=== PATIENT | female | born 1990 | race American Indian/Alaskan Native ===

== ENCOUNTER 2018-10-11 14:36 | Emergency (ER) | payer OTHER ==
[2018-10-11 16:07] LABS: HCG Qualitative,Urine Positive (Negative)
[2018-10-11 16:09] LABS: Bilirubin,Urine NEG (Negative); Blood,Urine SM (Negative); Color,Urine Yellow (Yellow); Mucus,Urine FEW /HPF; Protein,Urine <15 mg/dL mg/dL (Negative); Urobilinogen,Urine < 2.0 mg/dL (<2.0); WBC,Urine < 1.0 /HPF (0.0-6.0)
--- NOTE | 2018-10-11 18:56 | Ultrasound Report ---
PROCEDURE: US OB TRANSVAGINAL HISTORY: RUQ and right pelvic pain FINDINGS: Real-time ultrasound of the pelvis was performed by transabdominal and endovaginal techniqu e. These images demonstrate a single live intrauterine gestation at approximately 9 weeks and 5 days wit h cardiac activity of 157 bpm. The right ovary measures 2.6 x 2.2 x 2.5 cm and contains a cyst measuring 1.2 x 1.0 cm. The left ovar y measures 2.5 x 1.2 x 1.9 cm and appears unremarkable. IMPRESSION: Single live intrauterine gestation at approximately 9 weeks and 5 days. Estimated date of delivery is approximately May 11, 2019 This document is electronically signed by Brian Temple MD., October 11 2018 06:54:45 PM ET
--- NOTE | 2018-10-11 18:57 | Ultrasound Report ---
PROCEDURE: US OB <= 14 WEEKS FETUS HISTORY: RUQ and right pelvic pain FINDINGS: Real-time ultrasound of the pelvis was performed by transabdominal and endovaginal techniqu e. These images demonstrate a single live intrauterine gestation at approximately 9 weeks and 5 days wit h cardiac activity of 157 bpm. The right ovary measures 2.6 x 2.2 x 2.5 cm and contains a cyst measuring 1.2 x 1.0 cm. The left ovar y measures 2.5 x 1.2 x 1.9 cm and appears unremarkable. IMPRESSION: Single live intrauterine gestation at approximately 9 weeks and 5 days. Estimated date of delivery is approximately May 11, 2019 This document is electronically signed by Brian Temple MD., October 11 2018 06:55:02 PM ET
--- NOTE | 2018-10-11 19:03 | Ultrasound Report ---
US ABDOMEN LIMITED CLINICAL INDICATION: Female, 28 years of age. right upper quadrant pain COMPARISON: None available. TECHNIQUE: Several real-time grayscale and color Doppler images were obtained. Permanent images were secured for documentation. FINDINGS: Gallbladder surgically absent. No biliary dilatation. The common bile duct measures 1 mm. H omogeneous echodensity of the visualized portions of the liver and pancreas. Visualized aorta is norm al in caliber. Right kidney measures 11.4 cm in length. No hydronephrosis. Portal vein is patent. IMPRESSION: 1. Prior cholecystectomy. No biliary dilatation. 2. Remainder of the study is within normal limits. This document is electronically signed by Asmita Gutierrez DO., October 11 2018 07:01:43 PM ET
[2018-10-11 19:08] LABS: Basophils % (Auto) 0.6 % (0.0-1.8); Eosinophils # (Auto) 0.1 K/mm3 (0.0-0.4); Eosinophils % (Auto) 1.9 % (0.0-4.3); Hematocrit 37.9 % (30.3-42.9); Hemoglobin 12.5 gm/dl (10.1-14.3); Lymphocytes # (Auto) 1.4 K/mm3 (1.2-5.4); Lymphocytes % (Auto) 38.8 % (13.4-35.0); Mean Corpuscular HGB Conc 33 % (30-34); Mean Corpuscular Volume 83 fl (79-97); Monocytes # (Auto) 0.2 K/mm3 (0.0-0.8); Platelet Count 189 K/mm3 (140-440); Red Blood Count 4.57 M/mm3 (3.65-5.03); Red Cell Distribution Width 14.1 % (13.2-15.2)
--- NOTE | 2018-10-11 19:08 | Emergency Department Report ---
HPI - General Chief Complaint: Abdominal Pain Time Seen by Provider: 10/11/18 17:43 - HPI HPI: Room 36 The patient is a 28-year-old female presenting with chief complaint of abdominal pain. The patient states she is approximately 12 weeks experience left lower quadrant abdominal pain for approximately one week. Patient states yesterday she passed one very small blood clot vaginally. Patient states last night she believes she reached backward and pulled something in her right upper quadrant as she developed pain there. Patient describes her lower abdominal pain is intermittent. Has been no history of fever or dysuria. The patient has not noticed a relationship of her right upper quadrant to meals Location: [See above] Duration: One week Quality: Pain Severity: Moderate Modifying factors: [see above] Context: [see above] Mode of transportation: [not driving] ED Past Medical Hx - Past Medical History Previous Medical History?: No - Surgical History Hx Cholecystectomy: Yes Additional Surgical History: c/s - Family History Family history: no significant - Social History Smoking Status: Never Smoker Substance Use Type: None (denies illicit drug use) - Medications Home Medications: Home Medications Medication Instructions Recorded Confirmed Last Taken Type Famotidine [Pepcid] 20 mg PO BID #30 tablet 10/11/18 Unknown Rx ED Review of Systems ROS: Stated complaint: ABD PAIN Other details as noted in HPI Constitutional: no symptoms reported Eyes: denies: eye pain ENT: denies: throat pain Respiratory: no symptoms reported Cardiovascular: denies: chest pain Endocrine: no symptoms reported Gastrointestinal: abdominal pain, nausea Genitourinary: abnormal menses. denies: hematuria Musculoskeletal: denies: back pain Neurological: denies: headache Physical Exam - Physical Exam Vital Signs: Vital Signs 10/11/18 14:40 Temperature 98.2 F Pulse Rate 83 Respiratory 16 Rate Blood Pressure 104/64 O2 Sat by Pulse 100 Oximetry Physical Exam: GENERAL: The patient is well-developed well-nourished female lying on stretcher not appearing to be in acute distress. [] HEENT: Normocephalic. Atraumatic. Extraocular motions are intact. Patient has moist mucous membranes. NECK: Supple. Trachea midline CHEST/LUNGS: Clear to auscultation. There is no respiratory distress noted. HEART/CARDIOVASCULAR: Regular. There is no tachycardia. There is no gallop rub or murmur. ABDOMEN: Abdomen is soft, with tenderness to palpation in the right upper quadrant and left lower quadrant and there is no rebound or guarding. Patient has normal bowel sounds. There is no abdominal distention. SKIN: There is no rash. There is no edema. There is no diaphoresis. NEURO: The patient is awake, alert, and oriented. The patient is cooperative. The patient has normal speech MUSCULOSKELETAL: There is no evidence of acute injury. ED Course Vital Signs 10/11/18 14:40 Temperature 98.2 F Pulse Rate 83 Respiratory 16 Rate Blood Pressure 104/64 O2 Sat by Pulse 100 Oximetry ED Medical Decision Making - Lab Data Result diagrams: 10/11/18 18:42 10/11/18 18:42 Laboratory Tests 10/11/18 10/11/18 10/11/18 15:00 18:42 18:42 WBC 3.6 L RBC 4.57 Hgb 12.5 Hct 37.9 MCV 83 MCH 27 L MCHC 33 RDW 14.1 Plt Count 189 Lymph % (Auto) 38.8 H [place] % (Auto) 6.0 Eos % (Auto) 1.9 Baso % (Auto) 0.6 Lymph # 1.4 [place] # 0.2 Eos # 0.1 Baso # 0.0 Seg Neutrophils % 52.7 Seg Neutrophils # 1.9 Sodium 136 L Potassium 4.1 Chloride 101.1 Carbon Dioxide 24 Anion Gap 15 BUN 6 L Creatinine 0.5 L Estimated GFR > 60 BUN/Creatinine Ratio 12 Glucose 82 Calcium 8.9 Total Bilirubin 0.30 AST 19 ALT 10 Alkaline Phosphatase 46 Total Protein 6.5 Albumin 3.7 L Albumin/Globulin Ratio 1.3 Lipase 44 Urine Color Yellow Urine Turbidity Slightly-cloudy Urine pH 6.0 Ur Specific [place] 1.015 Urine Protein <15 mg/dl Urine Glucose (UA) Neg Urine Ketones Neg Urine Blood Sm Urine Nitrite Neg Ur Reducing Substances Not Reportable Urine Bilirubin Neg Urine Ictotest Not Reportable Urine Urobilinogen < 2.0 Ur Leukocyte Esterase Neg Urine WBC (Auto) < 1.0 Urine RBC (Auto) 1.0 U Epithel Cells (Auto) 9.0 Urine Mucus Few Urine HCG, Qual Positive A - Radiology Data Radiology results: report reviewed (pelvic ultrasound, right upper quadrant ultrasound), image reviewed (pelvic ultrasound, right quadrant ultrasound) [facility] [address] [place] [address] Ultrasound Report Signed Patient: JAZZY DANIELS MR#: [id number] : 1990 Acct:[id number] Age/Sex: 28 / F ADM Date: 10/11/18 Loc: ED Att ending Dr: Ordering Physician: DALE SMITH MD Date of Service: 10/11/18 Procedure(s): US OB transvaginal Accession Number(s): [id number] cc: DALE SMITH MD PROCEDURE: US OB TRANSVAGINAL HISTORY: RUQ and right pelvic pain FINDINGS: Real-time ultrasound of the pelvis was performed by transabdominal and endovaginal technique. These images demonstrate a single live intrauterine gestation at approximately 9 weeks and 5 days with cardiac activity of 157 bpm. The right ovary measures 2.6 x 2.2 x 2.5 cm and contains a cyst measuring 1.2 x 1.0 cm. The left ovary measures 2.5 x 1.2 x 1.9 cm and appears unremarkable. IMPRESSION: Single live intrauterine gestation at approximately 9 weeks and 5 days. Estimated date of delivery is approximately May 11, 2019 This document is electronically signed by Brian Temple MD., October 11 2018 06:54:45 PM ET Transcribed By: BERNICE Dictated By: BRIAN TEMPLE MD Electronically Authenticated By: BRIAN TEMPLE MD Signed Date/Time: 10/11/181855 DD/ TD/TT: 10/11/181850 [facility] [address] [place] [address] Ultrasound Report Signed Patient: JAZZY DANIELS MR#: [id number] : 1990 Acct:[id number] Age/Sex: 28 / F ADM Date: 10/11/18 Loc: ED Attending Dr: Ordering Physician: DALE SMITH MD Date of Service: 10/11/18 Procedure(s): US abdomen limited Accession Number(s): [id number] cc: DALE SMITH MD US ABDOMEN LIMITED CLINICAL INDICATION: Female, 28 years of age. right upper quadrant pain COMPARISON: None available. TECHNIQUE: Several real-time grayscale and color Doppler images were obtained. Permanent images were secured for d ocumentation. FINDINGS: Gallbladder surgically absent. No biliary dilatation. The common bile duct measures 1 mm. Homogeneous echodensity of the visualized portions of the liver and pancreas. Visualized aorta is normal in caliber. Right kidney measures 11.4 cm in length. No hydronephrosis. Portal vein is patent. IMPRESSION: 1. Prior cholecystectomy. No biliary dilatation. 2. Remainder of the study is within normal limits. This document is electronically signed by Asmita Gutierrez DO., October 11 2018 07:01:43 PM ET Transcribed By: LMA Dictated By: VITA GUTIERREZ MD Electronically Authenticated By: VITA GUTIERREZ MD Signed Date/Time: 10/11/181902 DD/ 46 TD/TT: 10/11/18 159 - Differential Diagnosis threatened , cholelithiasis, pulled muscle, Critical care attestation.: If time is entered above; I have spent that time in minutes in the direct care of this critically ill patient, excluding procedure time. ED Disposition Clinical Impression: Threatened , Abdominal pain Disposition: DC-01 TO HOME OR SELFCARE Is pt being admited?: No Does the pt Need Aspirin: No Condition: Stable Instructions: Abdominal Pain (ED) Prescriptions: Famotidine [Pepcid] 20 mg PO BID #30 tablet Referrals: MADAI RIDDLE MD [Primary Care Provider] - 3-5 Days [facility] [Provider Group] - [place] Time of Disposition: 19:58
[2018-10-11 19:36] LABS: Alanine Aminotransferase 10 units/L (7-56); Albumin 3.7 g/dL (3.9-5); BUN/Creatinine Ratio 12; Blood Urea Nitrogen 6 mg/dL (7-17); Calcium 8.9 mg/dL (8.4-10.2); Hemolysis Index 5
[2018-10-11 20:10] VITALS: BP 100/60
== END 2018-10-11 20:09 | disposition home or self-care (01) ==
LOC: ED 14:36
DX: O20.0 Threatened abortion (principal); Z90.49 Acquired absence of other specified parts of digestive tract; Z91.018 Allergy to other foods
CPT/HCPCS: 36415; 76705; 76801; 76817; 80053; 81001; 81025; 83690; 85025